=== PATIENT | male | born 1965 | race Caucasian/White ===

== ENCOUNTER 2023-05-06 12:00 | Emergency (ER) | payer BC, SELFPAY ==
[2023-05-06] VITALS (7 sets, daily range): BP systolic 129–156; BP diastolic 66–95; PULSE 81–87; RESP 18; TEMP 36.4; O2SAT 97–98; BMI 31.5; BMI 31.9
--- NOTE | 2023-05-06 12:17 | NURSING ---
NO OLD EKGS
--- NOTE | 2023-05-06 12:55 | CT_ITS ---
INDICATION: headache EXAMINATION: CT BRAIN - CT Head or Brain W/O Contrast Injection TECHNIQUE: Multiple axial images were obtained of the head without intravenous contrast. A radiation dose optimization technique was used for this scan. IV Contrast dosage and agent: None. RADIATION DOSAGE (If Supplied By Facility): CTDIvol = ( 47.06 ) mGy, DLP = ( 890.33 ) mGycm COMPARISON: No relevant prior comparison study available FINDINGS: BRAIN PARENCHYMA: No intra- or extra-axial hemorrhage. No evidence of acute infarct. No intracranial mass or mass effect. There is preservation of the hernandez/white matter interface. Posterior fossa structures are unremarkable. CSF SPACES: Appropriate for age. No hydrocephalus. Basal cisterns are patent. CALVARIUM, SKULL BASE, PARANASAL SINUSES AND MASTOID AIR CELLS: Clear. No discrete lytic or blastic abnormalities. ORBITS: Both globes, extraocular muscles, optic nerves and retrobulbar fat appear unremarkable. ASPECTS Score for Acute Strokes: 10 CT/Brain/Head without Contrast IMPRESSION: No acute intra-abdominal process. Electronically Signed: Johana White MD at 13:39 EDT ,
--- NOTE | 2023-05-06 13:01 | EDS_ITS ---
HPI History of Present Illness Chief Complaint: Neuro S/Sx Informant: patient and spouse/S.O. Narrative Narrative: Patient sent to the ED after evaluation by his net mvc developer today. He has been having progressive pain behind his eyes pressure over the last week. He denies any visual loss. He states photophobia. States was standing tingling across his shoulders. No history of similar. No head trauma. Seen at outside ED in [place], states that his head CT, he was given migraine cocktail with only mild improvement. He was given a prescription for Fioricet for which she just filled and not taking. He wears reading glasses. He does not wear anything for distance. He follows his eye doctor regularly. He denies any family history of multiple sclerosis. He was seen at [facility] eye care with his eye doctor. Visual acuity 20/25 OD and OS. From paperwork, he had bilateral optic disks edema with papilledema along with peripapillary flame hemorrhages. Reports his eyes were dilated along with full optic machine. He was sent here for concerns for pseudotumor cerebri for work-up. Prior similar symptoms: No PFSH PFSH Medical History (Updated 05/06/23 @ 15:[address] Javad Moses DO) Hypertension Stomach cancer Allergy/AdvReac Type Severity Reaction Status Date / Time No Known Allergies Allergy Verified 05/06/23 12:04 Social History Smoking Status: Current every day smoker tobacco type: cigarettes ROS ROS ED Constitutional Constitutional ED: Denies chills, fever(s) or sweats Eyes Eyes: Reports other Details: Photophobia, floaters to the left eye ; Denies blurry vision, change in vision or diplopia ENT ENT ED: Denies dysphagia or sore throat Cardiovascular Cardiovascular: Denies chest pain, leg edema, palpitations or racing heartbeat Respiratory/Chest Respiratory/Chest: Denies cough, dyspnea or dyspnea on exertion Gastrointestinal Gastrointestinal: Denies abdominal pain, diarrhea, nausea or vomiting Genitourinary Genitourinary ED: Denies dysuria, hematuria or urinary frequency Musculoskeletal Musculoskeletal: Denies back pain, extremity pain or neck pain Integumentary Denies rash or wounds Neurologic Neurologic: Reports headache(s); Denies paresthesias or weakness EXAM Physical Exam Const Vital Signs: 05/06/23 12:01 05/06/23 13:57 05/06/23 13:57 Temperature 97.6 F L Temperature Source Temporal Pulse Rate 81 87 Respiratory Rate 18 Blood Pressure 146/95 H 156/77 H 156/77 H Blood Pressure Mean 112 103 98 Pulse Ox 97 98 98 Oxygen Delivery Method Room Air Room Air 05/06/23 14:15 05/06/23 14:30 05/06/23 15:00 Temperature Temperature Source Pulse Rate Respiratory Rate Blood Pressure 140/79 H 129/66 H 144/89 H Blood Pressure Mean 96 84 104 Pulse Ox 97 98 Oxygen Delivery Method MDM MDM MDM Narrative Medical decision making narrative: Interventions / MDM: Differential diagnosis: Pseudotumor cerebri, headaches, metastatic cancer Diagnosis considered but do not suspect: N/A My EKG interpretation: N/A Imaging independently reviewed and interpreted by myself: CT brain: No acute process also read by radiology. MRI brain with and without contrast: Pending External documents reviewed: N/A Test considered but not ordered:N/A ED course: Patient in persistent headache behind his eyes bilateral papilledema from net mvc developer office. There are concerns for pseudotumor cerebri. Discussed this with the patient. He initially sent here for attempted diagnostic test with LP. Discussed with him before work-up. He agrees. CT scan ordered labs were ordered. Not on any anticoagulants. CT negative Labs all stable. Procedure note: Written consent with risks and benefits. Lumbar puncture. Timeout performed. Sterile conditions were performed. Appropriate drapes, patient placed in a left lateral recumbent position. L4-L5 landmarks were palpated from the iliac crest. Betadine prep. 1% lidocaine used for local analgesia. Advancement of the spinal needle initially with redirection with running resistance with bone. Area above inch attempted with local analgesia placed. Again redirected multiple areas with bone resistance. Difficulty with patient movement. Procedure was held due to difficulties. 1415 did reach out to radiology department with radiologist, discussed concerns for rule out from his eye doctor. Patient does not have any visual changes except for floaters left eye. He states with this department can bring him back at 8:30 in the morning for outpatient procedure performed. Orders were placed for outpatient procedure. Patient given IV caffeine to help with symptoms. 1430: in addition, I received call from his oncologist Dr. Shah who I discussed with, discussed patient's gastric cancer history. Aware patient be in the ED yesterday. More concerns of differential for metastatic cancer causing headache symptoms. I discussed the plan for tomorrow, with his concerns for cancer history which would require more expedited care. MRI studies of the brain are ordered. 1530: Patient signed out to oncoming physician Dr. Benjamin for MRI results and disposition. Re-evaluation: stable Disposition discussed with patient/family/significant other: Patient and significant other Case discussed with consulting clinician: oncologist Dr. Shah This note was generated with [employer] dictation software. It may contain incorrect words, spelling, and punctuation that were not noted in checking the note before signing. Lab Data Attestation: I reviewed the patient's lab results. Labs: Laboratory Results - last 24 hr 05/06/23 05/06/23 13:21 13:43 WBC 6.1 RBC 3.80 L Hgb 12.2 L Hct 36.6 L MCV 96.3 H MCH 32.1 H MCHC 33.3 RDW Std Deviation 78.2 H RDW Coeff of Radha 22.1 H Plt Count 218 MPV 8.9 Immature Gran % (Auto) 0.300 Neut % (Auto) 63.6 Lymph % (Auto) 21.4 Shackelford % (Auto) 13.2 H Eos % (Auto) 1.0 Baso % (Auto) 0.5 Absolute Neuts (auto) 3.9 Absolute Lymphs (auto) 1.31 Nucleated RBC % 0 PT 14.5 INR 1.1 APTT 46.0 H Sodium 139 Potassium 3.3 L Chloride 106 Carbon Dioxide 28.0 Anion Gap 5 BUN 11 Creatinine 0.85 Estim Creat Clear Calc 96.62 Est GFR (MDRD) Af Amer 119 Est GFR (MDRD) Non-Af 98 BUN/Creatinine Ratio 13.0 Glucose 107 H Calcium 8.9 POC Glucose 111 H Radiography Diagnostic Testing: Clinical Impression(s) from Imaging Studies Brain CT 05/06/23 12:55 IMPRESSION: No acute intra-abdominal process. Electronically Signed: Johana White MD at 13:39 EDT , Discharge Plan Triage Chief Complaint: Neuro S/Sx Other Complaint: Headache ED Provider: Javad Moses Dx/Rx/DC Orders Clinical Impression: Gastric cancer, Headache, Papilledema of both eyes Other Ambulatory Orders: Culture, CSF (Routine) Timeframe: 1 Day Facility: [facility] - Location: Laboratory Ordered By: Dr. Javad Moses Glucose Spinal Fluid (Routine) Timeframe: 1 Day Facility: [facility] - Location: Laboratory Ordered By: Dr. Javad Clemente Lumbar Puncture w/IMG Guide (Routine) Facility: [facility] - Location: [facility] Ordered By: Dr. Javad Moses Protein Spinal Fluid (Routine) Timeframe: 1 Day Facility: [facility] - Location: Laboratory Ordered By: Dr. Javad Moses Spinal Fluid Cell Count+Diff (Routine) Timeframe: 1 Day Facility: [facility] - Location: Laboratory Ordered By: Dr. Javad Moses Primary Care Provider: Care Physician,No Primary Referrals: NOT,DEFINED [Non-Staff] -
[2023-05-06 13:38] LABS: Absolute Lymphocyte Count 1.31 X10^3/uL (0.83-4.51); Absolute Neutrophil Count 3.9 X10^3/uL (2.0-7.7); Basophil# 0.03 X10^3/uL; Basophil% 0.5 % (0-1); Eosinophil# 0.06 X10^3/uL; Hematocrit 36.6 % (40-54); Hemoglobin 12.2 g/dL (13.0-16.5); Lymphocyte # 1.31 X10^3/ul (0.83-4.51); Lymphocyte % 21.4 % (19-41); Mean Corp Hgb Conc 33.3 g/dL (32-36); Mean Corpuscular Hgb 32.1 pg (27.0-32.0); Mean Corpuscular Volume 96.3 fL (80-94); Mean Platelet Vol. 8.9 fl (6.2-12.0); Monocyte# 0.81 X10^3/uL; Monocyte% 13.2 % (0-10); NRBC Flagged by Analyzer 0 % (0-5); Neutrophil # 3.89 X10^3/uL (2.7-7.7); Neutrophil % 63.6 % (47-70); POSITIVE MORPHOLOGY YES; Platelet Count 218 K/mm3 (150-450); RBC Distribution Width CV 22.1 % (11.6-14.6); RBC Distribution Width SD 78.2 fl (35.1-43.9); White Blood Count 6.1 K/mm3 (4.4-11.0)
[2023-05-06 13:43] LABS: Differential Indicated SCAN CRITERIA MET
[2023-05-06 13:47] LABS: Anion Gap 5 (5-15); BUN 11 mg/dL (7-18); Calcium,Total 8.9 mg/dL (8.5-10.1); Chloride 106 mmol/L (98-107); Creatinine, Serum 0.85 mg/dL (0.70-1.30); EST Glomerular Filtration Rate 98 mL/min (>60); Est Glom Filt Rate - Afr Amer 119 mL/min (>60); Estimated Creatinine Clearance 96.62 ml/min; Glucose 107 mg/dL (74-106); Potassium 3.3 mmol/L (3.5-5.1); Sodium Level 139 mmol/L (136-145)
[2023-05-06 14:00] LABS: International Normalized Ratio 1.1; Prothrombin Time (Protime)PT. 14.5 SECONDS (11.7-14.9)
[2023-05-06 14:01] LABS: Bedside Glucose 111 mg/dL (74-106)
--- NOTE | 2023-05-06 14:54 | MRI_ITS ---
INDICATION: Headache, papilledema -- hx gastric CA, C/O L EYE PAIN, VISION CHANGES EXAMINATION: MRI - MR Brain WO/W Contrast TECHNIQUE: Multiplanar and multisequence MR images of the brain were obtained without and with gadolinium. IV Contrast Dosage and Agent: 20 mL Clariscan COMPARISON: Same day head CT FINDINGS: BRAIN PARENCHYMA: No MRI evidence of hemorrhage. No evidence of acute infarct. No intracranial mass or mass effect. There is preservation of the hernandez/white matter interface. Normal sella turcica, pituitary gland, infundibular stalk, optic chiasm and hypothalamus. Posterior fossa structures are unremarkable. INTERNAL AUDITORY CANALS: The internal auditory canals appear normal. CSF SPACES: Appropriate for age. No hydrocephalus. Basal cisterns are patent. VASCULAR SYSTEM: Normal flow voids in the major intracranial circulation. CALVARIUM, SKULL BASE, PARANASAL SINUSES AND MASTOID AIR CELLS: Clear. No expansile changes. ORBITS: Both globes, extraocular muscles, optic nerves and retrobulbar fat appear unremarkable. MRI/Brain W/WO Contrast IMPRESSION: Negative MRI Brain. No enhancing intracranial mass or other finding to explain papilledema, vision changes, or headaches. Electronically Signed: Jan Monsivais MD at 18:11 EDT ,
--- NOTE | 2023-05-06 19:55 | NURSING ---
Pt requsting to leave port accessed for interventional radiology procedure tomorrow morning. Curos caps on loop and taped and dated. Pt reminded to ask for port to be de-accessed after procedure tomorrow. Pt confirms understanding.
== END 2023-05-06 21:00 | disposition home or self-care (01) ==
PROVIDERS: Emergency Medicine; Emergency Provider Emergency Medicine; Visit Provider Emergency Medicine
DX: H47.10 Unspecified papilledema (principal); I10 Essential (primary) hypertension; R51.9 Headache, unspecified; F17.210 Nicotine dependence, cigarettes, uncomplicated; Z85.028 Personal history of other malignant neoplasm of stomach
CPT/HCPCS: 62270; 36591; 70450; 70553; 80048; 82962; 85025; 85610; 85730; 96360; 96361; 99284; A9575; A4216

== ENCOUNTER → 2023-05-07 | Outpatient (CLI) | payer BC, SELFPAY ==
--- NOTE | 2023-05-07 08:17 | RAD_ITS ---
PROCEDURE: Fluoroscopic guided Lumbar Puncture. DATE: May 07, 2023. CLINICAL INDICATION: Headaches. PHYSICIAN: Micha Shetty M.D. MEDICATIONS: 1% lidocaine administered subcutaneously for local anesthesia. ACCESS SITE: Lower posterior back. NEEDLE: 22-gauge spinal needle. SPECIMEN: Approximately 14 mL xanthochromic CSF fluid. FLUOROSCOPY TIME (if supplied): (0:30) minutes/seconds. One image was obtained. 17.11 mGy COMPLICATIONS: None immediate. The risks, benefits, and alternatives to the procedure were explained to the patient. The specific risks of bleeding, infection, and neurovascular injury were detailed and accepted. Witnessed informed consent was obtained. The patient was placed on the fluoroscopic table in the prone position. The level for needle entry was determined and marked. The overlying skin was cleaned and prepped in the usual sterile fashion. 2% lidocaine was administered subcutaneously for local anesthesia. Under fluoroscopic guidance a 22-gauge spinal needle was advanced. The thecal sac was entered at the L2-L3 vertebral level. The inner stylet was removed. There was spontaneous flow of xanthochromic CSF fluid. Opening pressure measured 14 mm of water. The patient was placed in a reversed Trendelenburg position. Approximately 14 mL of cerebrospinal fluid was collected using gravity. The specimen was collected and submitted to the laboratory for further evaluation. The needle was withdrawn,. Hemostasis was achieved and a sterile dressing placed. The patient tolerated the procedure well without any immediate complications. The patient was placed supine with head elevated and returned to the floor in stable condition. RAD/Dx Lumbar Puncture w/IMG Guide IMPRESSION: Successful fluoroscopic-guided lumbar puncture. Electronically Signed: Micha Shetty MD at 11:14 EDT ,
[2023-05-07 08:28] VITALS: BP 157/80; PULSE 90; RESP 16; TEMP 37.1; O2SAT 98; BMI 31.8
[2023-05-07] MEDS: 0.9% Saline Lock 10 ML Syringe IV (08:55)
[2023-05-07] MEDS: Lidocaine 2% (5ml sdv) 5 ML VIAL.MPF INFILT (09:05)
[2023-05-07 09:15] VITALS: BP 138/85; PULSE 81; RESP 16; O2SAT 95
[2023-05-07 09:45] VITALS: BP 144/88; PULSE 87; RESP 16; O2SAT 96
[2023-05-07 10:01] LABS: CSF Color SL XANTH (Colorless); Tested Tube # 4
[2023-05-07 10:02] LABS: Appearance CSF (character) CLEAR (Clear)
[2023-05-07 10:10] LABS: Glucose Spinal Fluid 68 mg/dL (40-75)
[2023-05-07 10:15] LABS: RBC Count, Spinal Fluid 6 /mm-3 (None seen); White Count, CSF 27 /mm-3 (0 - 5)
[2023-05-07 10:41] LABS: Lymphocytes,CSF 72 % (40 - 80); Monocytes,CSF 28 % (15 - 45)
[2023-05-07 10:42] LABS: Body Fluid QC Type(s) BF1Q
[2023-05-07 13:21] LABS: Pathologist Review Reviewed
== END | disposition home or self-care (01) ==
LOC: RAD 08:16
PROVIDERS: Referring Provider Emergency Medicine; Visit Provider Emergency Medicine
DX: R51.9 Headache, unspecified (principal)
CPT/HCPCS: 62328; 82945; 84157; 87070; 87205; 89050; 89051; A4216